=== PATIENT | male | born 1940 | race Caucasian/White ===

== ENCOUNTER 2017-04-04 16:47 | Inpatient (IN) | payer OTHER ==
[2017-04-04] VITALS (7 sets, daily range): BP systolic 140–176; BP diastolic 47–70
[~2017-04-04] VITALS: Ht 170.1 cm; Wt 79.2 kg
--- NOTE | ~2017-04-04 | CON ---
[place], [place] REPORT OF CONSULTATION NAME: ELBERT BAUTISTA UNIT #: [id number] ROOM: 502 DOCTOR: ARLEY ARAYA MD BIRTHDATE: [birth year] DOS: REQUESTING PHYSICIAN: Andreas Rothman DO REASON FOR CONSULTATION: Bradycardia. ASSESSMENT: 1. 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 2. Consultation for bradycardia that appears to be completely asymptomatic. 3. Coronary artery disease, status post previous 2 myocardial infarction along with stents. No details available to me at this time. 4. Hypertension. 5. Hyperlipidemia. 6. Previous history of tobacco abuse. PLAN: 1. Decrease Toprol-XL to 50 mg b.i.d. 2. Consider Holter 24 hours as an outpatient. 3. Continue enteric-coated aspirin. 4. Severe headaches, management will be deferred to Dr. Rothman. 5. No further cardiac testing at this time. 6. Early followup in our clinic within 4-6 weeks as an outpatient. HISTORY AND PHYSICAL: The patient is a pleasant 77-year-old gentleman unknown to our practice, was referred by Dr. Rothman for further evaluation of complaint of bradycardia. Apparently, the patient presented to the hospital with 4-month history of headaches that appears to have been hours, overtime got worse. On Tuesday, the patient has severe headaches, mainly on the left side, radiates in upward fashion and seems to concentrate in the occipital area. The patient got much worse, but patient never had any nausea or vomiting. No diplopia or blurred vision. No dizziness, lightheadedness or near syncope. At no time he had any complaint of chest pain, chest pressure, heaviness or tightness. Never had any symptomatic palpitation or any associated dizziness, lightheadedness, or near syncope. The patient still works part-time. He is active, easily can walk more than a mile without any provoked cardiac complaints. He sleeps on one pillow with no reported PND, orthopnea, or pedal edema. No reported snoring. No fever, no chills, no night sweats, maintained good appetite, no weight loss. PAST MEDICAL HISTORY: As detailed in my assessment. SOCIAL HISTORY: The patient quit smoking many years ago, he started smoking at age 16. He is a social beer drinker. There is no heavy alcohol or illicit drug abuse. FAMILY HISTORY: There is no early family history of heart disease. CURRENT MEDICATIONS: Aspirin, Toprol 100 mg XL b.i.d., vitamin D, Lipitor, lisinopril, Protonix, Lovenox, Nitrostat, Celexa, Augmentin, Cipro, Tylenol, Zofran. [place], [place] REPORT OF CONSULTATION NAME: ELBERT BAUTISTA UNIT #: [id number] ROOM: [facility] DOCTOR: ARLEY ARAYA MD BIRTHDATE: [birth year] ALLERGIES: The patient has no known drug allergies. REVIEW OF SYSTEMS: Currently, the patient denies any severe headaches, even though still 2-3/10 on the left side. No diplopia, no blurring of vision, no fever, no chills, no night sweats. No abdominal pain, no bright red blood per rectum or tarry stools. The patient admits to joint pain, but no muscular pain. No anxiety, no depression. No polyuria, no polydipsia, no skin rash. Review of all other systems has been negative. PHYSICAL EXAMINATION: GENERAL: The patient is alert, oriented x 3, quite pleasant. The patient sitting up in bed, does not appear in distress, no ongoing complaint. VITAL SIGNS: Blood pressure 128/48, heart rate 63, respiratory rate of 14, temperature 97.7. HEENT: Extraocular muscles intact. Pupils equal, round, reactive to light. Conjunctivae, no pallor. Throat, no petechiae. NECK: Good carotid upstroke. Unable to appreciate any bruit, no lymphadenopathy, no thyromegaly. HEART: S1, S2 with a faint S4 gallop, holosystolic murmur in the left upper sternal border. No rub, no retrosternal heave. CHEST AND BACK: No deformities. LUNGS: Decreased air movement. No jose l wheezing or rales. ABDOMEN: Soft, nontender, present bowel sounds, no masses, no bruits. LOWER EXTREMITIES: There is no edema with faint distal pulses. NEUROLOGIC: Grossly nonfocal. SKIN: No significant rash. Electrocardiogram shows sinus bradycardia with occasional PVCs, that appeared to be unifocal. LABORATORY DATA: White count 6.5, hemoglobin 12.3, potassium 4.4 and GFR more than 60. Troponin less than 0.015, total cholesterol 145, LDL 70, HDL is 45. ARLEY ARAYA MD CM:CONSTR:REPORT OF CONSULTATION 1134 04/05/17 1218 interface
[~2017-04-04 16:47] MED LIST: CRESTOR40 MG PO; ECPIRIN325 MG PO; LISINOPRIL20 MG PO; METOPROLOL SR100 MG PO; NITROSTAT0.4 MG PO; PRILOSEC20 MG PO; VICODIN ES 7501 TAB PO
[2017-04-04 17:15] LABS: BASO # 0.1 10*3/uL (0.0-0.1); BASO % 0.8 % (0.0-1.0); EOS # 0.1 10*3/uL (0.0-0.4); EOS % 1.4 % (1.0-4.0); HEMATOCRIT 38.2 % (42.0-52.0); HEMOGLOBIN 12.8 g/dl (14.0-18.0); LYMPH # 1.9 10*3/uL (1.3-4.4); LYMPH % 24.6 % (27.0-41.0); MEAN CELL VOLUME 99.2 fl (80.0-94.0); MEAN CORPUSCULAR HGB 33.2 pg (27.0-31.0); MEAN CORPUSCULAR HGB CONC 33.5 g/dl (33.0-37.0); MEAN PLATELET VOLUME 11.4 fl (9.6-12.3); MONO # 0.7 10*3/uL (0.1-1.0); MONO % 8.4 % (3.0-9.0); NEUT % 64.4 % (47.0-73.0); PLATELET COUNT AUTOMATED 161 10*3/uL (130-400); RED BLOOD COUNT 3.85 10*6/uL (4.50-5.90); RED CELL DISTRI WIDTH 13.8 % (0-14.5); WHITE BLOOD COUNT 7.8 10*3/uL (4.8-10.8)
[2017-04-04 17:31] LABS: ALBUMIN 4.3 gm/dl (3.1-4.5); ALKALINE PHOSPHATASE 58 U/L (45-117); BILIRUBIN, TOTAL 0.7 mg/dl (0.2-1.0); BUN 21 mg/dl (7-24); CARBON DIOXIDE 27 mmol/L (21-32); CHLORIDE 105 mmol/L (98-107); EST GLOM FILT AFRICAN AMERICAN > 60 ml/min; GLUCOSE 103 mg/dL (65-99); MAGNESIUM 2.3 mg/dL (1.5-2.1); POTASSIUM 4.5 mmol/L (3.5-5.1); SGOT/AST 27 IU/L (3-35); SGPT/ALT 23 U/L (12-78); SODIUM 138 mmol/L (136-145); TOTAL PROTEIN 7.4 gm/dL (6.4-8.2)
[2017-04-04 17:32] LABS: TROPONIN I < 0.015 ng/ml (<0.045)
[2017-04-05] VITALS (7 sets, daily range): BP systolic 115–160; BP diastolic 46–60
[2017-04-05 06:02] LABS: BASO % 0.6 % (0.0-1.0); EOS # 0.1 10*3/uL (0.0-0.4); HEMATOCRIT 36.4 % (42.0-52.0); HEMOGLOBIN 12.3 g/dl (14.0-18.0); LYMPH # 1.8 10*3/uL (1.3-4.4); LYMPH % 28.3 % (27.0-41.0); MEAN CELL VOLUME 100.6 fl (80.0-94.0); MEAN CORPUSCULAR HGB CONC 33.8 g/dl (33.0-37.0); MEAN PLATELET VOLUME 11.2 fl (9.6-12.3); MONO # 0.6 10*3/uL (0.1-1.0); MONO % 8.9 % (3.0-9.0); NEUT # 3.9 10*3/uL (2.3-7.9); NEUT % 59.9 % (47.0-73.0); PLATELET COUNT AUTOMATED 147 10*3/uL (130-400); RED BLOOD COUNT 3.62 10*6/uL (4.50-5.90); RED CELL DISTRI WIDTH 13.8 % (0-14.5); WHITE BLOOD COUNT 6.5 10*3/uL (4.8-10.8)
[2017-04-05 06:31] LABS: BUN 17 mg/dl (7-24); CARBON DIOXIDE 29 mmol/L (21-32); CHLORIDE 108 mmol/L (98-107); CHOLESTEROL 145 mg/dL (<200); EST GLOM FILT AFRICAN AMERICAN > 60 ml/min; GLUCOSE 111 mg/dL (65-99); POTASSIUM 4.4 mmol/L (3.5-5.1); SODIUM 142 mmol/L (136-145); TRIGLYCERIDES 152 mg/dl (<150); VLDL CHOLESTEROL 30 mg/dL (6-40)
[2017-04-05 06:40] LABS: FREE T4 1.09 ng/dl (0.76-1.46); HDL CHOLESTEROL 45 mg/dl (40-60); LDL CHOLESTEROL 70 mg/dL (9-159); THYROID STIM HORMONE (HS) 0.688 uIU/ml (0.358-4.75)
[2017-04-05 07:39] LABS: HEMOGLOBIN A1c 5.7 % (4.8-5.6)
[2017-04-05 08:31] LABS: FOLIC ACID 20.64 ng/mL (>5.38)
[2017-04-05] MEDS ORDERED: FISH OIL500 M2 PO ×2 (08:45→09:00)
[2017-04-05] MEDS ORDERED: VITAMIN D31000 IU PO (08:46)
[2017-04-05] MEDS ORDERED: ACYCLOVIR800 MG PO (08:48)
[2017-04-06] VITALS: BP 141/50
[2017-04-06 04:00] VITALS: BP 139/60
[2017-04-06 05:51] LABS: BUN 21 mg/dl (7-24); CARBON DIOXIDE 25 mmol/L (21-32); CHLORIDE 109 mmol/L (98-107); EST GLOM FILT AFRICAN AMERICAN > 60 ml/min; GLUCOSE 118 mg/dL (65-99); POTASSIUM 4.4 mmol/L (3.5-5.1); SODIUM 141 mmol/L (136-145)
[2017-04-06 05:56] LABS: BASO # 0.1 10*3/uL (0.0-0.1); BASO % 0.7 % (0.0-1.0); EOS # 0.1 10*3/uL (0.0-0.4); EOS % 1.9 % (1.0-4.0); HEMATOCRIT 37.5 % (42.0-52.0); LYMPH # 1.7 10*3/uL (1.3-4.4); LYMPH % 23.8 % (27.0-41.0); MEAN CELL VOLUME 99.2 fl (80.0-94.0); MEAN CORPUSCULAR HGB 34.4 pg (27.0-31.0); MEAN CORPUSCULAR HGB CONC 34.7 g/dl (33.0-37.0); MEAN PLATELET VOLUME 11.5 fl (9.6-12.3); MONO # 0.6 10*3/uL (0.1-1.0); MONO % 7.9 % (3.0-9.0); NEUT # 4.6 10*3/uL (2.3-7.9); NEUT % 65.4 % (47.0-73.0); PLATELET COUNT AUTOMATED 153 10*3/uL (130-400); RED BLOOD COUNT 3.78 10*6/uL (4.50-5.90); RED CELL DISTRI WIDTH 13.7 % (0-14.5)
[2017-04-06 08:00] VITALS: BP 136/56
[2017-04-06] MEDS ORDERED: TOPROL XL50 M1 PO (13:13)
== END 2017-04-06 15:25 | disposition home or self-care (01) | DRG 153 ==
LOC: ED 16:47 → 5E 19:22 → EDHOLD 19:22 → 5E 19:33
PROVIDERS: Family Medicine; Nurse Practitioner
DX: H65.02 Acute serous otitis media, left ear (principal); R00.1 Bradycardia, unspecified; B02.9 Zoster without complications; I10 Essential (primary) hypertension; R51 Headache; I08.1 Rheumatic disorders of both mitral and tricuspid valves; H60.312 Diffuse otitis externa, left ear; E78.5 Hyperlipidemia, unspecified; I25.10 Atherosclerotic heart disease of native coronary artery without angina pectoris; E83.41 Hypermagnesemia; M62.830 Muscle spasm of back; Z79.82 Long term (current) use of aspirin; Z79.899 Other long term (current) drug therapy; Z72.89 Other problems related to lifestyle; Z87.891 Personal history of nicotine dependence; I25.2 Old myocardial infarction

== ENCOUNTER 2020-07-14 10:52 | Observation (INO) | payer OTHER ==
[~2020-07-14] VITALS: Ht 170.1 cm; Wt 76.7 kg
[~2020-07-14 10:52] MED LIST changes: +ACYCLOVIR800 MG PO; +CRESTOR40 M1 PO; -CRESTOR40 MG PO; +FISH OIL500 M2 PO; +TOPROL XL50 M1 PO; +VITAMIN D31000 IU PO
[2020-07-14 11:02] VITALS: BP 148/60
[2020-07-14 11:21] LABS: BASO # 0.1 10*3/uL (0.0-0.1); BASO % 0.7 % (0.0-1.0); EOS # 0.2 10*3/uL (0.0-0.4); EOS % 2.5 % (1.0-4.0); HEMATOCRIT 39.5 % (42.0-52.0); LYMPH # 1.6 10*3/uL (1.3-4.4); LYMPH % 23.8 % (27.0-41.0); MEAN CELL VOLUME 96.3 fl (80.0-94.0); MEAN CORPUSCULAR HGB 31.7 pg (27.0-31.0); MEAN CORPUSCULAR HGB CONC 32.9 g/dl (33.0-37.0); MEAN PLATELET VOLUME 10.7 fl (9.6-12.3); MONO # 0.6 10*3/uL (0.1-1.0); MONO % 9.2 % (3.0-9.0); NEUT # 4.2 10*3/uL (2.3-7.9); NEUT % 63.1 % (47.0-73.0); PLATELET COUNT AUTOMATED 231 10*3/uL (130-400); RED CELL DISTRI WIDTH 13.5 % (0-14.5); WHITE BLOOD COUNT 6.7 10*3/uL (4.8-10.8)
[2020-07-14 11:38] LABS: ALBUMIN 3.9 gm/dl (3.1-4.5); ALKALINE PHOSPHATASE 67 U/L (45-117); BUN 24 mg/dl (7-24); CHLORIDE 106 mmol/L (98-107); CREATININE 1.31 mg/dL (0.70-1.30); POTASSIUM 4.1 mmol/L (3.5-5.1); SGOT/AST 34 IU/L (3-35); SGPT/ALT 27 U/L (12-78); SODIUM 137 mmol/L (136-145); TOTAL PROTEIN 8.1 gm/dL (6.4-8.2)
[2020-07-14 11:44] LABS: TROPONIN I < 0.015 ng/ml (<0.045)
[2020-07-14 12:28] VITALS: BP 140/51
[2020-07-14 13:29] VITALS: BP 138/48
--- NOTE | 2020-07-14 14:15 | NUR ---
A 80, admitted to 5E, under the services of FAISAL Patel DO with a diagnosis of CHEST PAIN. Chief complaint is CHEST PAIN. Patient arrived via ambulatory from ER. Monitor applied. Initial assessment completed. Vital signs taken and recorded. FAISAL PATEL DO notified of admission to the unit. Orders received. See assessment for past medical history, medications and allergies. Patient and/or family oriented to unit. [facility] visitation policy reviewed. Clothing/patient valuable form completed. ALEX YOST
[2020-07-14 16:00] VITALS: BP 146/58
[2020-07-14] MEDS ORDERED: GABAPENTIN100 M2 PO (17:13)
[2020-07-14] MEDS ORDERED: VITAMIN B-12100 MCG PO (17:13)
--- NOTE | 2020-07-14 19:51 | NUR ---
IN TO SEE PATIENT. PATIENT HAS DECIDED TO BE A DNRCC, TO SIGN PAPERWORK
[2020-07-14 20:00] VITALS: BP 114/44
--- NOTE | 2020-07-14 20:03 | NUR ---
STATES TO PLACE TEMP MODIFIED MONITOR ORDER IN PLACE NOW THAT PATIENT IS A DNRCC
[2020-07-15] VITALS: BP 139/49
[2020-07-15 06:18] LABS: BASO % 0.2 % (0.0-1.0); EOS % 0.2 % (1.0-4.0); HEMATOCRIT 40.6 % (42.0-52.0); LYMPH # 1.2 10*3/uL (1.3-4.4); LYMPH % 19.7 % (27.0-41.0); MEAN CELL VOLUME 97.1 fl (80.0-94.0); MEAN CORPUSCULAR HGB 31.3 pg (27.0-31.0); MEAN CORPUSCULAR HGB CONC 32.3 g/dl (33.0-37.0); MONO # 0.1 10*3/uL (0.1-1.0); MONO % 1.1 % (3.0-9.0); NEUT # 4.8 10*3/uL (2.3-7.9); NEUT % 77.8 % (47.0-73.0); PLATELET COUNT AUTOMATED 225 10*3/uL (130-400); RED BLOOD COUNT 4.18 10*6/uL (4.50-5.90); RED CELL DISTRI WIDTH 13.3 % (0-14.5); WHITE BLOOD COUNT 6.2 10*3/uL (4.8-10.8)
[2020-07-15 06:31] LABS: ACT PARTIAL THROMBO TIME 28.7 SECONDS (20.0-32.1)
[2020-07-15 06:35] LABS: ALBUMIN 3.9 gm/dl (3.1-4.5); BUN 28 mg/dl (7-24); CHLORIDE 106 mmol/L (98-107); CHOLESTEROL 139 mg/dL (<200); CREATININE 1.36 mg/dL (0.70-1.30); POTASSIUM 4.2 mmol/L (3.5-5.1); SGOT/AST 34 IU/L (3-35); SGPT/ALT 29 U/L (12-78); SODIUM 138 mmol/L (136-145); TRIGLYCERIDES 75 mg/dl (<150); VLDL CHOLESTEROL 15 mg/dL (6-40)
[2020-07-15 06:40] LABS: ALKALINE PHOSPHATASE 67 U/L (45-117); FREE T4 1.18 ng/dl (0.76-1.46); HDL CHOLESTEROL 49 mg/dl (40-60); LDL CHOLESTEROL 75 mg/dL (9-159); THYROID STIM HORMONE (HS) 0.357 uIU/ml (0.358-4.75); TOTAL PROTEIN 8.2 gm/dL (6.4-8.2)
[2020-07-15 08:00] VITALS: BP 141/65
--- NOTE | 2020-07-15 08:00 | NUR ---
SITTING UP IN CHAIR. REMAINS NPO FOR TESTS TO BE PROFORMED TODAY. ASSESSMENT COMPLETE SEE FLOWSHEET. NO C/O VOICED. CALL LIGHT IN REACH.
--- NOTE | 2020-07-15 09:45 | NUR ---
OFF FLOOR FOR STRESS TEST.
--- NOTE | 2020-07-15 09:54 | NUR ---
CM in to see patient. He is not currently in his room. Will follow up at a later time.
[2020-07-15 10:12] LABS: VITAMIN D, 25-HYDROXY 91.7 ng/mL (30-100)
--- NOTE | 2020-07-15 10:45 | NUR ---
INFORMED CONSENT OBTAINED FOR LEXISCAN NUCLEAR STRESS TEST WITH DR. LUNDBERG. RESTING EKG SINUS BRADYCARDIA WITH A RESTING HR OF 55 WITH BP OF 126/72. LUNGS WITH SCATTERED RHONCHI WITH SPO2 OF 100% ON ROOM AIR. PT COMPLETED A 1:00 LEXISCAN PROTOCOL RECEIVING LEXISCAN 0.4 MG IV OVER 10 SECONDS. HAD NO CHEST PAIN. EKG NONDIAGNOSTIC. HAD A PEAK HR OF 102 WITH BP OF 130/72. LAST RECOVERY HR OF 93 WITH BP OF 120/68. AWAITING SCANNING IN STABLE CONDITION.
[2020-07-15 12:00] VITALS: BP 161/53
--- NOTE | 2020-07-15 14:00 | NUR ---
Pasteurizer Helper in to talk to patient. Patient states lives at home with his . There are 12 steps in the home. Physician: Fiorella Martell Pharmacy: [place] or [facility] Home health services: none Patient's level of ADLs: INDEPENDENT Patient has working utilities: yes DME: none Follow-up physician's appointment after d/c: will be made by the hospitalist nurse director upon discharge Does patient want to access PORTAL?: no Discharge plan discussed with patient. He is sitting up in his bedside chair eating lunch. He lives at home with his . He is independent in his ADLs and ambulation. Discussed home health care services and he declines. CM will continue to follow for any discharge planning needs. When medically stable he will be discharged to home. He states his will provide transportation on discharge. THERESE GOMEZ
--- NOTE | 2020-07-15 14:36 | NUR ---
Spoke to Pat at the [facility] regarding patient requesting to cancel his blood draw appt tomorrow at 8am. Appt has been canceled. Informed patient he will need to call and reschedule, he verbalized an understanding.
--- NOTE | 2020-07-15 14:39 | NUR ---
Spoke to , Linda, regarding patient remaining in the hospital until tomorrow due to IV antibiotics and IV steroids at patient's request. She verbalized an understanding. Patient notified.
[2020-07-15 16:00] VITALS: BP 132/59
[2020-07-15 20:00] VITALS: BP 141/43
[2020-07-16] VITALS: BP 141/47
[2020-07-16 06:58] LABS: BUN 28 mg/dl (7-24); CHLORIDE 109 mmol/L (98-107); CREATININE 1.17 mg/dL (0.70-1.30); POTASSIUM 4.4 mmol/L (3.5-5.1); SODIUM 141 mmol/L (136-145)
[2020-07-16 08:00] VITALS: BP 127/47
--- NOTE | 2020-07-16 09:13 | NUR ---
PT RESTING IN BED/ NO DSITRESS NOTED. WILL MONITOR
[2020-07-16] MEDS ORDERED: PREDNISONE10 MG PO (09:55)
[2020-07-16] MEDS ORDERED: OMNICEF300 MG PO (09:55)
[2020-07-16] MEDS ORDERED: ZITHROMAX500 MG PO (09:55)
--- NOTE | 2020-07-16 12:16 | NUR ---
Discharge instructions reviewed with patient/family. Patient receptive and verbalizes understanding. Follow-up care arranged. Written instructions given to patient/family. ROSALINDA VELEZ
== END 2020-07-16 12:16 | disposition home or self-care (01) ==
LOC: ED 10:52 → 5E 12:20 → EDHOLD 12:20 → 5E 13:53
PROVIDERS: Emergency Medicine; Family Medicine; Registered Nurse; ADMIT Internal Medicine; ATTEND Internal Medicine
DX: R07.89 Other chest pain (principal); J18.9 Pneumonia, unspecified organism; R00.1 Bradycardia, unspecified; D53.9 Nutritional anemia, unspecified; N17.9 Acute kidney failure, unspecified; I10 Essential (primary) hypertension; E78.5 Hyperlipidemia, unspecified; E55.9 Vitamin D deficiency, unspecified; R73.03 Prediabetes; I25.10 Atherosclerotic heart disease of native coronary artery without angina pectoris

== ENCOUNTER 2023-08-16 23:51 | Emergency (ER) | payer OTHER ==
[~2023-08-16] VITALS: Ht 182.8 cm; Wt 86.2 kg
[~2023-08-16 23:51] MED LIST changes: +GABAPENTIN100 M2 PO; +OMNICEF300 MG PO; +PREDNISONE10 MG PO; +VITAMIN B-12100 MCG PO; +ZITHROMAX500 MG PO
[2023-08-16 23:59] VITALS: BP 000/00
== END 2023-08-16 23:59 ==
LOC: ED 23:51
DX: I46.9 Cardiac arrest, cause unspecified (principal); I10 Essential (primary) hypertension; I25.2 Old myocardial infarction; E78.00 Pure hypercholesterolemia, unspecified; Z95.5 Presence of coronary angioplasty implant and graft